=== PATIENT | male | born 1940 | race Two or more races ===

== ENCOUNTER → 2023-02-11 | Outpatient (CLI) | payer MEDICARE | LOC: M WHC 12:47 | PROVIDERS: ATTEND Nurse Practitioner Family | DX: H35.60 Retinal hemorrhage, unspecified eye (principal) ==

== ENCOUNTER → 2023-03-11 | Outpatient (CLI) | payer MEDICARE ==
[2023-03-11 12:05] LABS: CREATININE FOR GFR 1.35 MG/DL (0.70-1.30); GLOMERULAR FILTRATION RATE 54.1 (>35)
== END ==
LOC: M LAB 10:43
PROVIDERS: ATTEND Surgery Vascular Surgery
DX: I65.23 Occlusion and stenosis of bilateral carotid arteries (principal)

== ENCOUNTER → 2023-03-15 | Outpatient (CLI) | payer MEDICARE ==
[~2023-03-15] MED LIST: ISOVUE-370 76% 100ML VIAL As Ordered ONE
== END ==
LOC: M RAD 08:24
PROVIDERS: ATTEND Surgery Vascular Surgery
DX: I65.23 Occlusion and stenosis of bilateral carotid arteries (principal); I67.2 Cerebral atherosclerosis
CPT/HCPCS: 70496; 70498; Q9967